=== PATIENT | female | born 1970 | race Caucasian/White ===

== ENCOUNTER 2017-02-21 21:29 | Emergency (ER) | payer MEDICAID ==
[~2017-02-21] VITALS: Ht 167.6 cm; Wt 81.0 kg
[2017-02-21 22:07] VITALS: Ht 167.6 cm; Wt 81.0 kg
[2017-02-22] MEDS ORDERED: ONDANSETRON 4 MG INJ IV STA (03:51)
[2017-02-22] MEDS ORDERED: SOD CHLORIDE 0.9% 1,000 ML IV STA (03:51)
[2017-02-22] MEDS ORDERED: IBUPROFEN 600 MG TAB PO ONE (04:00)
[2017-02-22] MEDS ORDERED: ACETAMINOPHEN 325 MG TAB PO ONE (04:00)
[2017-02-22 04:52] LABS: ABNORMAL IP MESSAGE 1; BASOPHILS % 0.3 % (0.0-2.0); EOSINOPHILS # 0.1 10^3/ul (0.0-0.5); EOSINOPHILS % 0.4 % (0.0-7.0); HEMATOCRIT 34.4 % (37.0-47.0); HEMOGLOBIN 11.3 g/dl (12.0-16.0); LYMPHOCYTES # 2.4 10^3/ul (0.8-2.9); LYMPHOCYTES % 19.2 % (15.0-51.0); MEAN CORPUSCULAR HEMOGLOBIN 27.4 pg (29.0-33.0); MEAN CORPUSCULAR HGB CONC 32.8 g/dl (32.0-37.0); MEAN CORPUSCULAR VOLUME 83.3 fl (82.0-101.0); MEAN PLATELET VOLUME 10.7 fl (7.4-10.4); MONOCYTE # 1.5 10^3/ul (0.3-0.9); MONOCYTES % 12.2 % (0.0-11.0); NEUTROPHILS % 66.1 % (39.0-77.0); PLATELET COUNT 299 10^3/UL (140-415); RED BLOOD COUNT 4.13 10^6/ul (4.20-5.40); RED CELL DISTRIBUTION WIDTH 13.1 % (11.5-14.5); WHITE BLOOD COUNT 12.4 10^3/ul (4.8-10.8)
--- NOTE | 2017-02-22 05:06 | ERD ---
ER Documentation Chief Complaint Date/Time DATE: 02/22/17 TIME: 04:59 Chief Complaint general body pain for a week and fever HPI 46-year-old female with a history of diabetes presents the emergency department for complaints of muscle aches, "bone pain", nausea and vomiting 2 weeks. Patient states she vomited twice today. She denies abdominal pain, dysuria, hematuria, flank pain, headache, congestion, cough, Chest pain, shortness of breath. Her last bowel movement was yesterday and normal for her. She denies any blood in the stool. Patient has taken Advil to control her symptoms with only temporary relief. ROS All systems reviewed and are negative except as per history of present illness. Medications Home Meds Active Scripts Ondansetron (Ondansetron Odt) 4 Mg Tab.rapdis, 4 MG PO Q6H Y for NAUSEA AND/OR VOMITING, #30 TAB Prov:SIRISHA SAMANIEGO PA-C 02/22/17 Naproxen* (Naprosyn*) 500 Mg Tablet, 500 MG PO BID Y for PAIN AND/OR INFLAMMATION, #30 TAB Prov:SIRISHA SAMANIEGO PA-C 02/22/17 Hydrocodone/Acetaminophen ([place] 5-325 Tablet) 1 Each Tablet, 1 TAB PO Q6H Y for PAIN, #14 TAB Prov:SIRISHA SAMANIEGO PA-C 02/22/17 Cephalexin* (Keflex*) 500 Mg Capsule, 500 MG PO BID for 10 Days, CAP Prov:SIRISHA SAMANIEGO PA-C 02/22/17 Discontinued Scripts Ondansetron (Ondansetron Odt) 4 Mg Tab.rapdis, 4 MG PO Q6H Y for NAUSEA AND/OR VOMITING, #10 TAB Prov:SIRISHA SAMANIEGO PA-C 02/22/17 Allergies Allergies: Coded Allergies: Penicillins (Unverified Allergy, Unknown, 04/04/10) PMhx/Soc History of Surgery: No Anesthesia Reaction: No Hx Neurological Disorder: No Hx Respiratory Disorders: No Hx Cardiac Disorders: No Hx Psychiatric Problems: No Hx Miscellaneous Medical Probl: No Hx Alcohol Use: No Hx Substance Use: No Hx Tobacco Use: No Smoking Status: Never smoker Physical Exam Vitals Vital Signs Date Time Temp Pulse Resp B/P Pulse Ox O2 Delivery O2 Flow Rate FiO2 02/21/17 22:07 101.4 99 18 100/72 96 Physical Exam Const: Well-developed, well-nourished, in mild distress Head: Atraumatic Eyes: Normal Conjunctiva ENT: Normal External Ears, Nose and Mouth.Oropharynx without evidence of erythema or tonsillar swelling Neck: Full range of motion..~ No meningismus. Resp: Clear to auscultation bilaterally Cardio: Regular rate and rhythm, no murmurs Abd: Soft, non tender, non distended. Normal bowel sounds Skin: No petechiae or rashes Back: No midline or flank tenderness Ext: No cyanosis, or edema Neur: Awake and alert Psych: Normal Mood and Affect Result Diagram: 02/22/1741902/22/17419 Results 24 hrs Laboratory Tests Test 02/22/17 04:20 White Blood Count 12.410^3/ul Red Blood Count 4.1310^6/ul Hemoglobin 11.3g/dl Hematocrit 34.4% Mean Corpuscular Volume 83.3fl Mean Corpuscular Hemoglobin 27.4pg Mean Corpuscular Hemoglobin Concent 32.8g/dl Red Cell Distribution Width 13.1% Platelet Count 43124^3/UL Mean Platelet Volume 10.7fl Neutrophils % 66.1% Lymphocytes % 19.2% Monocytes % 12.2% Eosinophils % 0.4% Basophils % 0.3% Nucleated Red Blood Cells % 0.0/100WBC Neutrophils # (Manual) 8.210^3/ul Lymphocytes # 2.410^3/ul Monocytes # 1.510^3/ul Eosinophils # 0.110^3/ul Basophils # 0.010^3/ul Nucleated Red Blood Cells # 0.010^3/ul Urine Color YELLOW Urine Clarity CLOUDY Urine pH 6.0 Urine Specific [place] 1.015 Urine Ketones TRACEmg/dL Urine Nitrite NEGATIVEmg/dL Urine Bilirubin NEGATIVEmg/dL Urine Urobilinogen 2+mg/dL Urine Leukocyte Esterase 1+[place]/ul Urine Microscopic RBC 3/HPF Urine Microscopic WBC 80/HPF Urine Squamous Epithelial Cells MANY/HPF Urine Bacteria MANY/HPF Urine Mucus FEW/HPF Urine Yeast (Budding) FEW/HPF Urine Hemoglobin 1+mg/dL Urine Glucose 3+mg/dL Urine Total Protein NEGATIVEmg/dl Sodium Level 136mmol/L Potassium Level 4.1mmol/L Chloride Level 95mmol/L Carbon Dioxide Level 28mmol/L Anion Gap 17 Blood Urea Nitrogen 9mg/dl Creatinine 0.43mg/dl Glucose Level 263mg/dl Lactic Acid Level 1.8mmol/L Calcium Level 9.4mg/dl Total Bilirubin 1.3mg/dl Direct Bilirubin 0.00mg/dl Indirect Bilirubin 1.3mg/dl Aspartate Amino Transf (AST/SGOT) 19IU/L Alanine Aminotransferase (ALT/SGPT) 38IU/L Alkaline Phosphatase 103IU/L Total Protein 7.8g/dl Albumin 4.2g/dl Globulin 3.60g/dl Albumin/Globulin Ratio 1.16 Lipase 69U/L Current Medications Medications (Trade) Dose Ordered Sig/Isiah Route PRN Reason Start Time Stop Time Status Last Admin Dose Admin Sodium Chloride (NS) 1,000 ml @ 1,000 mls/hr Q1H STAT IV 02/22/17 03:51 02/22/17 04:50 DC 02/22/17 04:33 Ondansetron HCl (Zofran Inj) 4 mg ONCE STAT IV 02/22/17 03:51 02/22/17 03:53 DC 02/22/17 04:33 Acetaminophen (Tylenol Tab) 650 mg ONCE ONCE PO 02/22/17 04:00 02/22/17 04:01 DC 02/22/17 04:34 Ibuprofen 600 mg 600 mg ONCE ONCE PO 02/22/17 04:00 02/22/17 04:01 DC 02/22/17 04:34 Sodium Chloride (NS) 1,000 ml @ 1,000 mls/hr Q1H ONCE IV 02/22/17 06:00 02/22/17 06:59 Procedures/MDM This is a 46-year-old female with a history of diabetes who presents to the emergency department for a 2 week history of body aches, bone pain, Fever,and nausea and vomiting with 2 episodes of vomiting yesterday. Patient's physical exam without evidence of abdominal distention, tenderness, or Flank pain. ENT exam was normal and patient moving air well. Patient denied abdominal pain, chest pain, shortness of breath, dysuria or flank pain. Upon arrival patient febrile at 101.4. Otherwise not tachycardic, normotensive and non-hypoxic. Fever was well controlled with 1 dose of Motrin and Tylenol in the emergency department. Her nausea was controlled with 1 dose of Zofran. Patient without episodes of emesis during entire ER stay. CBC showed no evidence of systemic infection or severe anemia. CMP showed no evidence of electrolyte abnormalities, severe acidosis, alkalosis , renal failure, or liver disease. Blood sugar was measured at 263. Patient received 2 L of fluids while in the emergency department Lipase showed no evidence of acute pancreatitis. UA with evidence of bacteremia, leukocyte esterase, and hematuria. Patient with likely urinary tract infection. Urine test was negative. Patient reevaluated and repeat abdominal exam was performed. Patient without abdominal tenderness or flank pain throughout her ER visit. Belly was soft and nondistended. History and physical exam consistent with fever and body aches likely the results of urinary tract infection versus viral syndrome. At this time low suspicion for pyelonephritis, acute renal injury, severe hyperglycemia, DKA, pneumonia, acute coronary syndrome, bowel obstruction, or acute abdomen. Patient instructed to begin antibiotics and continue Zofran and Tylenol for pain and nausea control. Patient reported she felt safe for discharge home. Based on patient's history of present illness and physical examination the decision was made to discharge. The patient was re-evaluated after ED treatment and stabilizing measures, and symptoms have improved. There is no evidence of life threatening injuries or illnesses at this time. On re-examination, patient resting in no distress, stable vital signs, reports feeling better and safe for discharge with outpatient follow up with PMD in 1-2 days. Patient given return precautions. Departure Diagnosis: Primary Impression: Fever Fever type: unspecified Qualified Code: R50.9 - Fever, unspecified fever cause Additional Impressions: Body aches Vomiting Vomiting type: unspecified Vomiting Intractability: non-intractable Nausea presence: with nausea Qualified Code: R11.2 - Non-intractable vomiting with nausea, unspecified vomiting type SIRISHA SAMANIEGO PA-C Feb 22, 2017 05:06
[2017-02-22 05:08] LABS: POSITIVE DIFF @See below
[2017-02-22 05:12] LABS: ADD UMIC YES; UR ASCORBIC ACID NEGATIVE (NEGATIVE); UR BACTERIA MANY /HPF (NONE SEEN); UR BILIRUBIN (Dip) NEGATIVE (NEGATIVE); UR BLOOD (Dip) 1+ mg/dL (NEGATIVE); UR BUDDING YEAST FEW /HPF (NONE SEEN); UR CLARITY CLOUDY (CLEAR); UR COLOR YELLOW (YELLOW); UR GLUCOSE (Dip) 3+ mg/dL (NEGATIVE); UR KETONES (Dip) TRACE mg/dL (NEGATIVE); UR LEUKOCYTE ESTERASE (Dip) 1+ Leu/ul (NEGATIVE); UR MUCUS FEW /HPF (NONE SEEN); UR NITRITE (Dip) NEGATIVE (NEGATIVE); UR RBC 3 /HPF (0-5); UR SPECIFIC GRAVITY (Dip) 1.015 (1.003-1.030); UR SQUAMOUS EPITHELIAL CELL MANY /HPF (FEW); UR TOTAL PROTEIN (Dip) NEGATIVE (NEGATIVE); UR UROBILINOGEN (Dip) 2+ mg/dL (NEGATIVE); UR WBC CLUMPS FEW /HPF (NONE SEEN)
[2017-02-22 05:20] LABS: ALBUMIN 4.2 g/dl (3.3-4.9); ALBUMIN/GLOBULIN RATIO 1.16; BILIRUBIN,INDIRECT 1.3 mg/dl (0-1.1); BILIRUBIN,TOTAL 1.3 mg/dl (0.2-1.3); CALCIUM 9.4 mg/dl (8.4-10.2); CREATININE 0.43 mg/dl (0.44-1.00); POTASSIUM 4.1 mmol/L (3.5-5.1); TOTAL PROTEIN 7.8 g/dl (6.1-8.1)
[2017-02-22] MEDS ORDERED: ONDA4TAB14 PO ×2 (05:43→05:45)
[2017-02-22] MEDS ORDERED: HYDR-906 PO (05:43)
[2017-02-22] MEDS ORDERED: CEPH-443 PO (05:43)
[2017-02-22] MEDS ORDERED: NAPR-260 PO (05:43)
[2017-02-22] MEDS ORDERED: SOD CHLORIDE 0.9% 1,000 ML IV ONE ×2 (06:00→07:00)
[2017-02-22 08:29] VITALS: BP 91/52; PULSE 79; RESP 18; TEMP 98.2
== END 2017-02-22 08:32 | disposition home or self-care (01) ==
LOC: FTE 21:29
DX: R50.9 Fever, unspecified (principal); R52 Pain, unspecified; R11.2 Nausea with vomiting, unspecified
CPT/HCPCS: 36415; 80053; 81001; 83605; 83690; 85025; 96374; J2405; J7030; Z7502; Z7610

== ENCOUNTER 2017-03-16 12:44 | Emergency (ER) | payer MEDICAID ==
[~2017-03-16] VITALS: Ht 165.1 cm; Wt 79.5 kg
[~2017-03-16 12:44] MED LIST: CEPH-443 PO; HYDR-906 PO; NAPR-260 PO; ONDA4TAB14 PO
[2017-03-16 12:51] VITALS: Ht 165.1 cm; Wt 79.5 kg
[2017-03-16] MEDS ORDERED: KETOROLAC 30 MG INJ IV STA (14:28)
[2017-03-16] MEDS ORDERED: SOD CHLORIDE 0.9% 1,000 ML IV STA (14:28)
[2017-03-16] MEDS ORDERED: ONDANSETRON 4 MG INJ IV STA (14:28)
--- NOTE | 2017-03-16 14:34 | ERD ---
ER Documentation Chief Complaint Date/Time DATE: 03/16/17 TIME: 14:30 Chief Complaint BILAT FLANK PAIN X3DAYS, N/V/FEVER/[id number] HPI This is a 46-year-old female presenting to emergency department with bilateral flank pain, vomiting and fever 2 days. Patient states she has constant, sharp bilateral flank pain that radiates to bilateral upper abdomen. Patient also has multiple episodes of yellow emesis for the past 3 days. Patient states she had 6 episodes of emesis yesterday and multiple episodes today. Patient also reports tactile fevers however did not check temperature at home. No chest pain or chest pressure. No shortness of breath or difficulty breathing. No diarrhea or constipation. No dysuria, hematuria, urinary frequency or urgency. No vaginal bleeding. ROS All systems reviewed and are negative except as per history of present illness. Medications Home Meds Active Scripts Tramadol HCl (Tramadol HCl) 50 Mg Tablet, 50 MG PO Q4 Y for PAIN, #10 TAB Prov:MELE MOJICA NP 03/16/17 Ciprofloxacin Hcl* (Ciprofloxacin Hcl*) 500 Mg Tablet, 500 MG PO BID for 7 Days , TAB Prov:MELE MOJICA NP 03/16/17 Ondansetron (Ondansetron Odt) 4 Mg Tab.rapdis, 4 MG PO Q6H Y for NAUSEA AND/OR VOMITING, #30 TAB Prov:SIRISHA SAMANIEGO PA-C 02/22/17 Naproxen* (Naprosyn*) 500 Mg Tablet, 500 MG PO BID Y for PAIN AND/OR INFLAMMATION, #30 TAB Prov:SIRISHA SAMANIEGO PA-C 02/22/17 Hydrocodone/Acetaminophen ([place] 5-325 Tablet) 1 Each Tablet, 1 TAB PO Q6H Y for PAIN, #14 TAB Prov:SIRISHA SAMANIEGO PA-C 02/22/17 Cephalexin* (Keflex*) 500 Mg Capsule, 500 MG PO BID for 10 Days, CAP Prov:SIRISHA SAMANIEGO PA-C 02/22/17 Allergies Allergies: Coded Allergies: Penicillins (Unverified Allergy, Unknown, 04/04/10) PMhx/Soc History of Surgery: No Anesthesia Reaction: No Hx Neurological Disorder: No Hx Respiratory Disorders: No Hx Cardiac Disorders: No Hx Psychiatric Problems: No Hx Miscellaneous Medical Probl: No Hx Alcohol Use: No Hx Substance Use: No Hx Tobacco Use: No Physical Exam Vitals Vital Signs Date Time Temp Pulse Resp B/P Pulse Ox O2 Delivery O2 Flow Rate FiO2 03/16/17 17:50 98.0 82 18 105/50 97 Room Air 03/16/17 12:51 101.4 98 20 128/60 98 Physical Exam Const: alert, anxious, writhing in pain, 101.4F and pulse 98 bpm. Blood pressure 128/60. Respirations 20/min. Oxygen saturation 98% on room air Head: Atraumatic Eyes: Normal Conjunctiva ENT: Normal External Ears, Nose and Mouth. Neck: Full range of motion..~ No meningismus. Resp: Clear to auscultation bilaterally Cardio: Regular rate and rhythm, no murmurs Abd: Soft, non tender, non distended. Normal bowel sounds Skin: No petechiae or rashes Back: No midline tenderness. left sided CVA tenderness Ext: No cyanosis, or edema Neur: Awake and alert Psych: Normal Mood and Affect Result Diagram: 03/16/17 1445 03/16/17 1445 Results 24 hrs Laboratory Tests Test 03/16/17 14:45 03/16/17 14:55 White Blood Count 9.710^3/ul Red Blood Count 4.0310^6/ul Hemoglobin 11.2g/dl Hematocrit 33.7% Mean Corpuscular Volume 83.6fl Mean Corpuscular Hemoglobin 27.8pg Mean Corpuscular Hemoglobin Concent 33.2g/dl Red Cell Distribution Width 13.6% Platelet Count 98512^3/UL Mean Platelet Volume 11.3fl Neutrophils % 80.1% Lymphocytes % 9.9% Monocytes % 9.1% Eosinophils % 0.4% Basophils % 0.2% Nucleated Red Blood Cells % 0.0/100WBC Neutrophils # 7.810^3/ul Lymphocytes # 1.010^3/ul Monocytes # 0.910^3/ul Eosinophils # 0.010^3/ul Basophils # 0.010^3/ul Nucleated Red Blood Cells # 0.010^3/ul Urine Color YELLOW Urine Clarity SLIGHTLY CLOUDY Urine pH 6.0 Urine Specific [place] 1.039 Urine Ketones 2+mg/dL Urine Nitrite NEGATIVEmg/dL Urine Bilirubin NEGATIVEmg/dL Urine Urobilinogen 2+mg/dL Urine Leukocyte Esterase NEGATIVELeu/ul Urine Microscopic RBC > 182/HPF Urine Microscopic WBC 14/HPF Urine Squamous Epithelial Cells FEW/HPF Urine Hemoglobin 3+mg/dL Urine Glucose 3+mg/dL Urine Total Protein 2+mg/dl Sodium Level 131mmol/L Potassium Level 4.1mmol/L Chloride Level 98mmol/L Carbon Dioxide Level 23mmol/L Anion Gap 14 Blood Urea Nitrogen 9mg/dl Creatinine 0.42mg/dl Glucose Level 252mg/dl Calcium Level 8.9mg/dl Total Bilirubin 0.9mg/dl Direct Bilirubin 0.00mg/dl Indirect Bilirubin 0.9mg/dl Aspartate Amino Transf (AST/SGOT) 19IU/L Alanine Aminotransferase (ALT/SGPT) 29IU/L Alkaline Phosphatase 111IU/L Total Protein 7.9g/dl Albumin 4.1g/dl Globulin 3.80g/dl Albumin/Globulin Ratio 1.07 Lipase 44U/L Lactic Acid Level 1.3mmol/L Current Medications Medications (Trade) Dose Ordered Sig/Isiah Route PRN Reason Start Time Stop Time Status Last Admin Dose Admin Sodium Chloride (NS) 1,000 ml @ 1,000 mls/hr Q1H STAT IV 03/16/17 14:28 03/16/17 15:27 DC 03/16/17 14:59 Ondansetron HCl (Zofran Inj) 4 mg ONCE STAT IV 03/16/17 14:28 03/16/17 14:30 DC 03/16/17 14:58 Ketorolac Tromethamine (Toradol) 30 mg ONCE STAT IV 03/16/17 14:28 03/16/17 14:30 DC 03/16/17 14:58 IV Flush 10 ml 10 ml STK-MED ONCE .ROUTE 03/16/17 16:19 03/16/17 16:20 DC 03/16/17 16:19 Sodium Chloride (NS) 100 ml @ ud STK-MED ONCE .ROUTE 03/16/17 16:19 03/16/17 16:20 DC 03/16/17 16:19 Iodixanol 100 ml 100 ml STK-MED ONCE .ROUTE 03/16/17 16:19 03/16/17 16:20 DC 03/16/17 16:19 Ceftriaxone Sodium (Rocephin) 50 ml @ 100 mls/hr ONCE ONCE IVPB 03/16/17 17:00 03/16/17 17:29 DC 03/16/17 17:12 Procedures/MDM [place] [id number] Radiology Main Line: [phone] DIAGNOSTIC IMAGING REPORT Patient: SADIA YUAN : 1970 Age: 46 Sex: F MR #: [id number] DOS: 03/16/17 1428 Ordering MD: MELE CABA NP Location: [facility] Room/Bed: PROCEDURE: CT Abdomen and Pelvis with contrast. CLINICAL INDICATION: Bilateral flank pain TECHNIQUE: CT scan of the abdomen and pelvis with contrast was performed on a multi-detector high-resolution CT scanner. The patient was scanned following the uncomplicated intravenous administration of 100 cc of Visipaque 320 Coronal and sagittal reformatted images were obtained from the axial source images. Images were reviewed on a high-resolution PACS workstation. The total exam CTDI equals 19.11 mGy and the total exam DLP equals 1172.8 mGy-cm. One or more of the following dose reduction techniques were used: Automated exposure control. Adjustment of the mA and/or kV according to patient size. Use of iterative reconstruction technique. COMPARISON: None. FINDINGS: CT abdomen: The lung bases are clear. The heart size is normal, without pericardial thickening or effusion. The liver is normal in size and density without focal mass or intrahepatic biliary dilatation. The spleen is normal in size and homogeneous in density. The stomach is partially collapsed, but is grossly unremarkable. The pancreas as visualized is normal. The gallbladder is surgically absent. There is no evidence for biliary dilatation. The adrenal glands are symmetric and normal. Approximately 1.2 cm ill-defined hypoenhancing area in the lateral upper pole right kidney and 1.5 cm area in the anterior upper pole left kidney. There is mild perinephric fatty stranding more evident on the left. There is no urolithiasis. There is no hydronephrosis. There is approximately 3 cm cortical cysts in the lower pole right kidney. The aorta is of normal caliber. There is no retroperitoneal lymphadenopathy. The christiano hepatis region is clear. The bowel and mesentery, as visualized, are equally unremarkable. There is a fat containing periumbilical hernia. CT pelvis: The small bowel loops situated within the pelvis are unremarkable. The appendix is normal. There is approximately 3.5 cm hypodensity in the left adnexa likely representing an ovarian cyst. The pelvic sidewalls and inguinal regions are clear. The sigmoid colon and rectum are unremarkable. No mass, lymphadenopathy , or free fluid is seen. No acute inflammation is seen. The bladder is normal. The surrounding osseous structures are unremarkable. No osteolytic or osteoblastic lesion is detected. IMPRESSION: 1. Small hypoenhancing areas in the upper pole bilateral kidneys with mild perinephric fatty stranding more evident on the left. The findings are nonspecific but could be seen with focal pyelonephritis. No urolithiasis. No hydronephrosis. 2. Approximately 3 cm cortical cyst in the lower pole right kidney. 3. Status post cholecystectomy. No biliary ductal dilatation. 4. Normal appendix. 5. Fat containing periumbilical hernia. MDM: This is a 46-year-old female presenting to emerge department for bilateral flank pain, vomiting and fever 3 days. She has temp of 101.4F upon arrival to ED and heart rate 98 bpm. Patient's respirations 20 with oxygen saturation 98% on room air. IV access obtained per staff design engineer and labs drawn. CT abdomen and pelvis ordered. Patient given 1 L IV fluid bolus of normal saline. Patient also given Zofran 4 mg IV and Toradol 30 mg IV. Upon reassessment, patient states pain is improved. CT abdomen and pelvis reviewed by radiologist as Small hypoenhancing areas in the upper pole bilateral kidneys with mild perinephric fatty stranding more evident on the left. The findings are nonspecific but could be seen with focal pyelonephritis. No urolithiasis. No hydronephrosis. Approximately 3 cm cortical cyst in the lower pole right kidney. Patient given Rocephin 1 g via IV while in the ED. she is well- appearing and appears in no acute distress. Vital signs are stable. Stable for discharge home. Diagnosis is pyelonephritis. Low suspicion for nephrolithiasis, septic stone or sepsis. Patient is appropriate for outpatient management will be given prescription for Cipro and tramadol. Instructed patient to follow-up with primary care provider in the next 24-48 hours for reassessment and additional management. Return to ED for any high fever, chest pain, difficulty breathing, shortness breath, wheezing, vomiting, diarrhea, abdominal pain or any new or worsening symptoms. Patient verbalizes understanding. All questions answered at discharge. [place] translation used during this encounter. Disclaimer: Inadvertent spelling and grammatical errors are likely due to EHR/ dictation software use and do not reflect on the overall quality of patient care. Also, please note that the electronic time recorded on this note does not necessarily reflect the actual time of the patient encounter. Departure Diagnosis: Primary Impression: Flank pain Condition: Stable MELE MOJICA NP Mar 16, 2017 14:34
[2017-03-16 15:01] LABS: BASOPHILS % 0.2 % (0.0-2.0); EOSINOPHILS % 0.4 % (0.0-7.0); HEMATOCRIT 33.7 % (37.0-47.0); HEMOGLOBIN 11.2 g/dl (12.0-16.0); LYMPHOCYTES % 9.9 % (15.0-51.0); MEAN CORPUSCULAR HEMOGLOBIN 27.8 pg (29.0-33.0); MEAN CORPUSCULAR HGB CONC 33.2 g/dl (32.0-37.0); MEAN CORPUSCULAR VOLUME 83.6 fl (82.0-101.0); MEAN PLATELET VOLUME 11.3 fl (7.4-10.4); MONOCYTE # 0.9 10^3/ul (0.3-0.9); MONOCYTES % 9.1 % (0.0-11.0); NEUTROPHIL # 7.8 10^3/ul (1.6-7.5); NEUTROPHILS % 80.1 % (39.0-77.0); PLATELET COUNT 194 10^3/UL (140-415); RED BLOOD COUNT 4.03 10^6/ul (4.20-5.40); RED CELL DISTRIBUTION WIDTH 13.6 % (11.5-14.5); WHITE BLOOD COUNT 9.7 10^3/ul (4.8-10.8)
[2017-03-16 15:03] LABS: ADD UMIC YES; UR ASCORBIC ACID NEGATIVE (NEGATIVE); UR BILIRUBIN (Dip) NEGATIVE (NEGATIVE); UR BLOOD (Dip) 3+ mg/dL (NEGATIVE); UR CLARITY SLIGHTLY CLOUDY (CLEAR); UR COLOR YELLOW (YELLOW); UR GLUCOSE (Dip) 3+ mg/dL (NEGATIVE); UR KETONES (Dip) 2+ mg/dL (NEGATIVE); UR LEUKOCYTE ESTERASE (Dip) NEGATIVE Leu/ul (NEGATIVE); UR NITRITE (Dip) NEGATIVE (NEGATIVE); UR RBC > 182 /HPF (0-5); UR SPECIFIC GRAVITY (Dip) 1.039 (1.003-1.030); UR SQUAMOUS EPITHELIAL CELL FEW /HPF (FEW); UR TOTAL PROTEIN (Dip) 2+ mg/dl (NEGATIVE); UR UROBILINOGEN (Dip) 2+ mg/dL (NEGATIVE)
[2017-03-16 15:23] LABS: ALBUMIN 4.1 g/dl (3.3-4.9); ALBUMIN/GLOBULIN RATIO 1.07; BILIRUBIN,INDIRECT 0.9 mg/dl (0-1.1); BILIRUBIN,TOTAL 0.9 mg/dl (0.2-1.3); CALCIUM 8.9 mg/dl (8.4-10.2); CREATININE 0.42 mg/dl (0.44-1.00); POTASSIUM 4.1 mmol/L (3.5-5.1); TOTAL PROTEIN 7.9 g/dl (6.1-8.1)
[2017-03-16] MEDS ORDERED: IODIXANOL LOCM 100 ML BTL ONE (16:19)
[2017-03-16] MEDS ORDERED: SOD CHLORIDE 0.9% 100 ML ONE (16:19)
--- NOTE | 2017-03-16 16:45 | RADRPT ---
PROCEDURE: CT Abdomen and Pelvis with contrast. CLINICAL INDICATION: Bilateral flank pain TECHNIQUE: CT scan of the abdomen and pelvis with contrast was performed on a multi-detector high- resolution CT scanner. The patient was scanned following the uncomplicated intravenous administrati on of 100 cc of Visipaque 320 Coronal and sagittal reformatted images were obtained from the axial source images. Images were reviewed on a high-resolution PACS workstation. The total exam CTDI equal s 19.11 mGy and the total exam DLP equals 1172.8 mGy-cm. One or more of the following dose reduction techniques were used: Automated exposure control. Adjustment of the mA and/or kV according to patient size. Use of iterative reconstruction technique. COMPARISON: None. FINDINGS: CT abdomen: The lung bases are clear. The heart size is normal, without pericardial thickening or effusion. Th e liver is normal in size and density without focal mass or intrahepatic biliary dilatation. The sp griselda is normal in size and homogeneous in density. The stomach is partially collapsed, but is gross ly unremarkable. The pancreas as visualized is normal. The gallbladder is surgically absent. Ther e is no evidence for biliary dilatation. The adrenal glands are symmetric and normal. Approximately 1.2 cm ill-defined hypoenhancing area in the lateral upper pole right kidney and 1.5 c m area in the anterior upper pole left kidney. There is mild perinephric fatty stranding more eviden t on the left. There is no urolithiasis. There is no hydronephrosis. There is approximately 3 cm co rtical cysts in the lower pole right kidney. The aorta is of normal caliber. There is no retroperitoneal lymphadenopathy. The christiano hepatis reg ion is clear. The bowel and mesentery, as visualized, are equally unremarkable. There is a fat cont aining periumbilical hernia. CT pelvis: The small bowel loops situated within the pelvis are unremarkable. The appendix is normal. There is approximately 3.5 cm hypodensity in the left adnexa likely representing an ovarian cyst. The pelvi c sidewalls and inguinal regions are clear. The sigmoid colon and rectum are unremarkable. No mass , lymphadenopathy, or free fluid is seen. No acute inflammation is seen. The bladder is normal. Th e surrounding osseous structures are unremarkable. No osteolytic or osteoblastic lesion is detected . IMPRESSION: 1. Small hypoenhancing areas in the upper pole bilateral kidneys with mild perinephric fatty strandi ng more evident on the left. The findings are nonspecific but could be seen with focal pyelonephriti s. No urolithiasis. No hydronephrosis. 2. Approximately 3 cm cortical cyst in the lower pole right kidney. 3. Status post cholecystectomy. No biliary ductal dilatation. 4. Normal appendix. 5. Fat containing periumbilical hernia. RPTAT: BB .Roel Russell MD, MD Date Time Electronically viewed and signed by .Roel Russell MD, on 03/16/2017 16:45 .O/
[2017-03-16] MEDS ORDERED: CEFTRIAXONE 1 GM/50 ML (PMX) 50 ML IVPB ONE (17:00)
[2017-03-16] MEDS ORDERED: CIPR500T4 PO (17:10)
[2017-03-16] MEDS ORDERED: TRAM50TA2 PO (17:10)
[2017-03-16 17:50] VITALS: BP 105/50; PULSE 82; RESP 18; TEMP 98
== END 2017-03-16 17:50 | disposition home or self-care (01) ==
LOC: FTE 12:44
DX: R10.9 Unspecified abdominal pain (principal)
CPT/HCPCS: 36415; 74177; 80053; 81001; 83605; 83690; 85025; 96365; 96375; J0696; J1885; J2405; J7030; Q9967; Z7502; Z7610